=== PATIENT | female | born 1945 | race Caucasian/White ===

== ENCOUNTER → 2016-12-06 | Outpatient (CLI) | payer MEDICARE, OTHER ==
[~2016-12-06] MED LIST: DICLOFENAC 50MG50 MG PO; ESCITALOPRAM 2020 MG PO; FERROUS SULFAT325 M2 PO; LEXAPRO 10 MG T10 MG PO; MECLIZINE HCL25 M1 PO; PANTOPRAZOLE SO40 MG PO
[2016-12-06 16:14] LABS: HEMOGLOBIN 13.3 g/dL (12.2-16.2); LYMPH # 2.2 K/mm3 (0.7-4.5); LYMPH % 31.6 % (10-50.0)
[2016-12-06 16:23] LABS: BUN 26 mg/dL (7-18)
[2016-12-06 16:44] LABS: GFR (ESTIMATED) 122 ML/MIN (59-)
== END ==
LOC: LAB 15:44
PROVIDERS: Physician Assistant
DX: F41.9 Anxiety disorder, unspecified (principal); F33.0 Major depressive disorder, recurrent, mild; J45.909 Unspecified asthma, uncomplicated; K21.9 Gastro-esophageal reflux disease without esophagitis; Z88.9 Allergy status to unspecified drugs, medicaments and biological substances; Z23 Encounter for immunization; Z79.899 Other long term (current) drug therapy

== ENCOUNTER → 2016-12-24 | Outpatient (CLI) | payer MEDICARE, OTHER ==
--- NOTE | 2016-12-24 23:54 | RADIOLOGY REPORT PS360 ---
KNEE-3 VIEWS-RT HISTORY: RT KNEE INJURYright knee pain. Injury fall small step with right knee pain 1 week Patient Age: 71 years: Female Ordering Physician: IRISH RAUSCH TECHNIQUE: 3 views right knee COMPARISON :No previous listed FINDINGS . Degenerative changes of the right knee with Developing tricompartmental marginal osteophytes. There is The mild joint space narrowing at the medial and lateral compartment on this nonweightbearing film. Question subtle undulation at the medial femoral condyle. No joint effusion an suprapatella bursa.. ] It is also some mild soft tissue swelling evident anterior to the patellar tendon possible dependent fluid. IMPRESSION: ---- No fracture evident. No joint effusion. Degenerative changes right knee. Mild swelling at and overlying patellar tendon region.
== END ==
LOC: RAD 14:17
DX: S89.91XA Unspecified injury of right lower leg, initial encounter (principal)